=== PATIENT | female | born 1985 | race Caucasian/White ===

== ENCOUNTER 2017-03-30 20:18 | Emergency (ER) | payer BC ==
[~2017-03-30] VITALS: Ht 162.6 cm; Wt 63.4 kg
[~2017-03-30 20:18] MED LIST: CYCL-331 PO; HYDR-79 PO
[2017-03-30 20:25] VITALS: BP 129/69
[2017-03-30] MEDS ORDERED: lamictal (21:02)
[2017-03-30] MEDS ORDERED: concerta (21:02)
[2017-03-30] MEDS ORDERED: naproxen (21:02)
--- NOTE | 2017-03-30 21:08 | PHYS DOC ---
General Chief Complaint: ABDOMINAL PAIN Stated Complaint: SIDE PAIN Time Seen by MD: 20:49 Source: patient Exam Limitations: no limitations Problems: History of Present Illness Initial Comments Patient is a 31-year-old female who comes to the ED complaining of left hip/ side pain. Patient states that she is very into fitness, she and her spouse trained together regularly and she runs half marathons with a weighted backpacks among other activities. This morning while nearing the completion of a 10 mile run she says she experienced sudden onset left sided anterior hip/abdominal discomfort. She says it started out with a twinge similar to a cramp from running. She was able to finish the run despite the discomfort and thought her "cramp" would resolve over time. Throughout the day she says she's had tightening and muscle stiffness with radiation of her discomfort to her left groin and stiffness and tightness in her low back. Pain is described as sharp, minimal at rest moderate to severe with movement and palpation. No leg symptoms no incontinence no saddle anesthesia. Bxex-xgf-[id number] medications are not helping. Timing/Duration: getting worse, other Severity: moderate Modifying Factors: worse with movement, improves with rest Associated Symptoms: other Allergies: Coded Allergies: No Known Allergies (Verified Allergy, Unknown, 03/30/17) Past Medical History Medical History: no pertinent history Surgical History: noncontributory Social History Smoker: non-smoker Alcohol: none Drugs: none Review of Systems Constitutional: denies chills, denies diaphoresis, denies fever Respiratory: denies cough, denies shortness of breath Cardiovascular: denies chest pain, denies palpitations Gastrointestinal: denies diarrhea, denies nausea, denies vomiting Genitourinary: denies dysuria, denies frequency, denies hematuria Musculoskeletal: see HPI Psychiatric/Neurological: see HPI, denies headache, denies numbness, denies paresthesia, denies weakness Physical Exam General Appearance: WD/WN, no apparent distress Ear, Nose, Throat: hearing grossly normal, normal ENT inspection Neck: non-tender, supple Respiratory: normal breath sounds, no respiratory distress Cardiovascular: normal peripheral pulses, regular rate, rhythm Gastrointestinal: normal bowel sounds, non tender, soft Back: no CVA tenderness, no vertebral tenderness Extremities: no pedal edema, no calf tenderness, pelvis stable, other ( iliopsoas muscle hypertonicity with tenderness to palpation, symptoms reproduced with resisted left hip flexion no palpable bony deformity) Neurologic/Psychiatric: sample washer II-XII nml as tested, no motor/sensory deficits, alert, normal mood/affect, oriented x 3, other (DTRs/strength/sensory equal and intact bilateral lower extremities, negative straight leg raise bilaterally) Skin: normal color, warm/dry Orders, Labs, Meds No imaging indicated in the absence of trauma. I discussed the treatment plan patient expressed agreement and understanding. Departure Time of Disposition: 21:04 Disposition: 01 HOME, SELF-CARE Diagnosis: left iliopsoas strain Condition: GOOD Patient Instructions: Muscle Strain, [id number] Additional Instructions: Aggressive hydration with Gatorade or water. Keep activity to "pain free." Heating pad to affected area 15-20 minutes 4-6 times daily followed by gentle stretching. [id number] ibuprofen and Tylenol as needed for discomfort. Prescriptions: Flexeril, [place] 5 mg quantity 10 Follow-up on Post next week for recheck. Return to the ED with new or changing symptoms WILLIAN HANSON DO Mar 30, 2017 21:08
[2017-03-30] MEDS ORDERED: ORPHENADRINE CITRATE 60 MG/2 ML VIAL. IM ONE (21:30)
[2017-03-30] MEDS ORDERED: KETOROLAC 60 MG/2 ML VIAL. IM ONE (21:30)
== END 2017-03-30 21:35 | disposition home or self-care (01) ==
LOC: ER 20:18
DX: S76.012A Strain of muscle, fascia and tendon of left hip, initial encounter (principal); X58.XXXA Exposure to other specified factors, initial encounter; Y93.02 Activity, running; Y99.8 Other external cause status; Y92.89 Other specified places as the place of occurrence of the external cause
CPT/HCPCS: 96372; 99284; J1885; J2360

== ENCOUNTER 2017-04-03 19:25 | Emergency (ER) | payer BC ==
[~2017-04-03 19:25] MED LIST changes: +concerta; +lamictal; +naproxen
--- NOTE | 2017-04-03 19:31 | ED.ADGEN ---
Past History Past Medical History: Anxiety, Other Past Surgical History: Tubal ligation Alcohol Use: None Drug Use: None Adult General Chief Complaint Chief Complaint Left sided back pain [facility] HPI Patient is a 31 year old female who presents with with sided back pain. She was seen 4 days ago after she did a 10 mile run with backpack with approximate and she stated before she did the run she was having a stitch in her left side and was seen in the ER after the 10 mile run for back pain/pulled muscle. She was discharge with cyclobenzaprine and [place]. She states that the pain is been better and she's usable her pain meds. She's been using icy hot and still complaining about a constant pain in her left flank area. She denies any fevers chills nausea vomiting, dysuria or constipation. She states only past surgical history is a tubal ligation. Review of Systems Review of Systems Constitutional: Denies fever or chills [] Eyes: Denies change in visual acuity, redness, or eye pain [] HENT: Denies nasal congestion or sore throat [] Respiratory: Denies cough or shortness of breath [] Cardiovascular: No additional information not addressed in HPI [] GI: Denies abdominal pain, nausea, vomiting, bloody stools or diarrhea [] : Denies dysuria or hematuria [] Musculoskeletal: Positive for left-sided back pain Integument: Denies rash or skin lesions [] Neurologic: Denies headache, focal weakness or sensory changes [] Endocrine: Denies polyuria or polydipsia [] Allergies Allergies Allergies Coded Allergies Type Severity Reaction Last Updated Verified No Known Allergies Allergy Unknown 03/30/17 Yes Physical Exam Physical Exam Constitutional: Well developed, well nourished, no acute distress, non-toxic appearance. [] HENT: Normocephalic, atraumatic, bilateral external ears normal, oropharynx moist, no oral exudates, nose normal. [] Eyes: PERRLA, EOMI, conjunctiva normal, no discharge. [] Neck: Normal range of motion, no tenderness, supple, no stridor. [] Cardiovascular:Heart rate regular rhythm, no murmur [] Lungs & Thorax: Bilateral breath sounds clear to auscultation [] Abdomen: Bowel sounds normal, soft, no tenderness, no masses, no pulsatile masses. [] Skin: Warm, dry, no erythema, no rash. [] Back: Tender palpation over the left paraspinal lumbar area,midline tenderness or step-offs noted, no CVA tenderness. [] Extremities: No tenderness, no cyanosis, no clubbing, ROM intact, no edema. [] Neurologic: Alert and oriented X 3, normal motor function, normal sensory function, no focal deficits noted. [] Psychologic: Affect normal, judgement normal, mood normal. [] Current Patient Data Vital Signs Vital Signs Date Time Temp Pulse Resp B/P (MAP) Pulse Ox O2 Delivery O2 Flow Rate FiO2 04/03/17 19:45 98.1 70 20 100 Room Air Lab Results Laboratory Tests Test 04/03/17 19:40 04/03/17 20:35 Urine Collection Type Unknown Urine Color Yellow Urine Clarity Cloudy Urine pH 6.5 Urine Specific [place] 1.015 Urine Protein Neg (NEG-TRACE) Urine Glucose (UA) Neg mg/dL (NEG) Urine Ketones (Stick) Neg mg/dL (NEG) Urine Blood Neg (NEG) Urine Nitrite Pos (NEG) Urine Bilirubin Neg (NEG) Urine Urobilinogen Dipstick 0.2 mg/dL (0.2 mg/dL) Urine Leukocyte Esterase Trace (NEG) Urine RBC 0 /HPF (0-2) Urine WBC 1-4 /HPF (0-4) Urine Squamous Epithelial Cells Many /LPF Urine Bacteria Many /HPF (0-FEW) POC Urine HCG, Qualitative hcg negative (Negative) EKG EKG [] Radiology/Procedures Radiology/Procedures [] Course & Med Decision Making Course & Med Decision Making Pertinent Labs and Imaging studies reviewed. (See chart for details) Patient has physical exam that's consistent with a muscle spasm where she is tender to one spot and there is a spasm under it. We did check a urine to look for any hematuria to evaluate for possible kidney stone. She does have nitrites positive and trace leuks however she does have numerous squames which makes me think is contaminated. She has not a fever or dysuria. So will not treat at this time. We'll discharge with [place] and she has her Flexeril. Return precautions given she is agreeable Plan B discharged in stable condition this time. Final Impression Final Impression Muscle Spasm Problems: Dragmarita Disclaimer Dragon Disclaimer This electronic medical record was generated, in whole or in part, using a voice recognition dictation system. ONI LICEA MD Apr 03, 2017 19:31
[2017-04-03 19:45] VITALS: BP 124/65
[2017-04-03 20:49] LABS: BILIRUBIN,URINE NEG (NEG); CLARITY,URINE CLOUDY; COLOR,URINE YELLOW; GLUCOSE,URINE NEG (NEG); NITRITE,URINE POS (NEG); UROBILINOGEN,URINE 0.2 mg/dL (0.2 mg/dL)
[2017-04-03 20:58] LABS: BACTERIA,URINE MANY /HPF (0-FEW); RBC,URINE 0 /HPF (0-2); SQUAMOUS EPITHELIAL CELL,UR MANY /LPF
[2017-04-03] MEDS ORDERED: HYDR-971 PO (21:38)
== END 2017-04-03 22:00 | disposition home or self-care (01) ==
LOC: ER 19:25
DX: M62.838 Other muscle spasm (principal); M54.89 Other dorsalgia; F41.9 Anxiety disorder, unspecified
CPT/HCPCS: 81001; 81025; 87086; 87186; 99284